=== PATIENT | female | born 1960 | race African-American/Black ===

== ENCOUNTER 2018-11-28 10:11 | Outpatient (CLI) | payer OTHER ==
--- NOTE | 2018-11-28 10:42 | RAD ---
EXAM: Lumbar spine 2 views: HISTORY: Lumbar radiculopathy COMPARISON: None FINDINGS: Postoperative laminectomy and pedicle screws including right-sided screws at L3-L4 and bilateral scre ws at L5-S1. No evidence for acute fracture or dislocation involving the visualized spine. There are disc osteophytosis and facet arthrosis changes. No evidence for malalignment. No evidence for a bone lesion. IMPRESSION: Spondylosis. Postoperative changes. No other acute process.
== END 2018-11-28 10:12 | disposition home or self-care (01) ==
LOC: TBSIIMAG 10:11
PROVIDERS: ATTEND Neurological Surgery
DX: M47.26 Other spondylosis with radiculopathy, lumbar region (principal); Z98.890 Other specified postprocedural states
CPT/HCPCS: 72100